=== PATIENT | female | born 1985 | race Caucasian/White ===

== ENCOUNTER 2021-04-16 00:23 | Emergency (ER) | payer OTHER, SELFPAY ==
[2021-04-16 00:28] VITALS: BP 117/77; PULSE 115; RESP 22; TEMP 36.7; O2SAT 100
[2021-04-16 00:53] VITALS: PULSE 110; RESP 20; O2SAT 100
[2021-04-16 01:33] VITALS: BP 157/77; PULSE 62; RESP 18; O2SAT 100
[2021-04-16 01:36] VITALS: BP 124/79; PULSE 69; RESP 16; TEMP 36.7; O2SAT 100
--- NOTE | 2021-04-16 02:21 | ED.GENADULT ---
HPI - General Adult General Chief complaint: Skin/Abscess/Foreign Body Stated complaint: abscess to left axilla Time Seen by Provider: 04/16/21 01:09 CDT Source: RN notes reviewed History of Present Illness HPI narrative: Patient presents emergency department from home for multiple complaints. Patient states she is had an abscess in her left axilla for the past week she stated initially began as a small reddened area that she attempted to drain herself she states progressively enlarged in size with tenderness to palpation and swelling she denies any current drainage from the area she denies any fevers or chills chest pain or shortness of breath. Patient also noticed an area over the lower mid vagina that is been raw and irritated she states that this has been this way for several weeks and is concerned it might be due to a new sexual partner she states the area seems to have been rubbed raw during sexual activity states that she has had no fevers or chills or abdominal pain Related Data Allergies Allergy/AdvReac Type Severity Reaction Status Date / Time No Known Allergies Allergy Verified 04/16/21 00:32 Review of Systems Review of Systems: Gen.: Denies fevers or chills ENT: Denies congestion Respiratory: Denies shortness of breath or cough CV: Denies chest pain or palpitations GI: Denies abdominal pain nausea, emesis or diarrhea denies burning, urgency, frequency or hematuria Musculoskeletal: Denies back pain or muscle pain Neuro: Denies headache Skin: See HPI Except as documented, all other systems reviewed and negative PMFSH Past Medical History Medical History (Updated 04/16/21 @ 02:30 by Cleve Coronado DO) Patient denies significant medical history Social History Social History (Updated 04/16/21 @ 02:26 by Cleve Coronado DO) Smoking status: Never smoker Exam Narrative: APPEARANCE: No acute distress, nontoxic, resting in bed EYES: EOMI HEENT: Normocephalic, atraumatic, RESPIRATORY: No respiratory distress Clear to auscultation bilaterally with no rhonchi wheezing or rales. CARDIOVASCULAR: Regular rate and rhythm without murmurs rubs or gallops. Abdomen: Soft nontender : On external exam there is no erythema at the inferior aspect of the midline vagina there is a there is an area of superficial ulceration this does not appear to be herpetic in nature there is no vaginal drainage MUSCULOSKELETAl: Moves all extremities. No clubbing, cyanosis or edema. NEURO: Awake and alert. Following commands, speech normal, no focal deficits SKIN:: Warm, dry. Left axilla has a large area of erythema with central area of fluctuance no active drainage PSYCHIATRIC: Normal affect/mood, Course Course Emergency Course: Discussed with patient results of workup and diagnosis. Discussed need for follow-up with primary care, proper use of medication, and reasons to return to the emergency department. Patient understands and agrees to current treatment plan discussed with patient need for follow-up with ENVIRONMENTAL SERVICES COORDINATOR discussed need to refrain from sexual activity to follow-up with ENVIRONMENTAL SERVICES COORDINATOR Vital Signs Vital signs: Vital Signs Temperature 98.1 F 04/16/21 00:28 Pulse Rate 115 H 04/16/21 00:28 Respiratory Rate 22 H 04/16/21 00:28 Blood Pressure 117/77 04/16/21 00:28 Pulse Oximetry 100 04/16/21 00:28 Temperature 98.0 F 04/16/21 01:36 GENERATOR MAN Pulse Rate 69 04/16/21 01:36 GENERATOR MAN Respiratory Rate 16 04/16/21 01:36 GENERATOR MAN Blood Pressure 124/79 04/16/21 01:36 GENERATOR MAN Pulse Oximetry 100 04/16/21 01:36 GENERATOR MAN Procedures Abscess I/D Axilla: Abcess I&D Additional Comments: Verbal consent was obtained prior to procedure. The abscess was cleaned with Betadine and lidocaine 1% with epi was used for anesthesia. The abscess was incised with an 11 blade. There was return of approximately 3-4 mL of thick purulent drainage. Curved hemostats were used to break up loculations, the wound was irrigated with normal saline. Following
[2021-04-16 02:41] VITALS: PULSE 80; RESP 18; O2SAT 100
== END 2021-04-16 02:41 | disposition home or self-care (01) ==
PROVIDERS: Emergency Provider Emergency Medicine
DX: L02.412 Cutaneous abscess of left axilla (principal)
CPT/HCPCS: 10061; 99283; A9270

== ENCOUNTER 2025-02-01 15:58 | Emergency (ER) | payer OTHER, SELFPAY ==
--- NOTE | ~2025-02-01 | CT_ITS ---
EXAMINATION: CT brain wo con DATE: 02/01/2025 16:24 INDICATION: Trauma to left side. Left eye swollen shut. TECHNIQUE: Computed tomography (CT) of the head was performed without intravenous contrast. The dose-length product was 605.33 mGy-cm. COMPARISON: None FINDINGS: No acute intracranial hemorrhage. No mass effect. No midline shift. No hydrocephalus. No skull fracture. Visualized paranasal sinuses and mastoid air cells are clear. Left preseptal soft tissue swelling with a few locules of air. Left frontal scalp hematoma with a few locules of air. No metallic radiopaque foreign body identified. The globes have an unremarkable CT appearance. IMPRESSION: 1. No acute intracranial hemorrhage. No mass effect. 2. Left-sided preseptal soft tissue swelling with a few locules of air. 3. Left frontal scalp hematoma with a few locules of air. 4. No metallic radiopaque foreign body identified. 5. The globes have an unremarkable CT appearance. If symptoms persist or worsen, consider a maxillofacial CT for further assessment. Reviewed, dictated and finalized at location Q. IMPRESSION: 1. No acute intracranial hemorrhage. No mass effect. 2. Left-sided preseptal soft tissue swelling with a few locules of air. 3. Left frontal scalp hematoma with a few locules of air. 4. No metallic radiopaque foreign body identified. 5. The globes have an unremarkable CT appearance. If symptoms persist or worsen , consider a maxillofacial CT for further assessment.
[2025-02-01 15:58] VITALS: BP 110/92; PULSE 113; RESP 16; TEMP 37.1; O2SAT 100
--- OUTSIDE RECORDS SUMMARY | 2025-02-01 16:00 | XMS_ITS | Clinical Summary ---
Author Organization [facility] Address [address] [place] [address] Care Team Providers Care Notcher Name Role Phone None, Provider MD Primary Care Provider Unavaila ble Allergies No known active allergies Medications lorazepam 1 MG tablet Take 1 tablet (1 mg total) by mouth every 8 (eight) hours as needed for Anxiety. 12 tablet 10/07/2018 Active hydrOXYzine 25 MG tablet Take 2 tablets (50 mg total) by mouth 2 (two) times daily as needed for Anxiety. 30 tablet 10/07/2018 Active citalopram 20 MG tablet Take 20 mg by mouth daily. 4 09/12/2018 Active diazepam 5 MG tablet Take 10 mg by mouth daily. Active Social History Tobacco Use Types Packs/Day Years Used Date Smoking Tobacco: Every Day Cigarettes Alcohol Use Standard Drinks/Week Comments No 0 (1 standard drink = 0.6 oz pur e alcohol) AUDIT-C Answer Date Recorded Frequency of Alcohol Consumption Never 10/07/2018 Average Number of Drinks Not on file 019 Frequency of Binge Drinking Not on file 09/10 Comments Unknown Sex and Gender Information Value Date Recorded Sex Assigned at Not on file Legal Sex Female 5:50 PM ICT EDUCATOR Gender Identity Not on file Sexual Orientation Not on file Last Filed Vital Signs Vital Sign Reading Time Taken Comments Blood Pressure 89/56 10/01/2019 5:46 PM CDT Pulse 95 10/01/2019 5:46 PM CDT Temperature 36.4 C (97.5 F) 10/01/2019 5:46 PM CDT Respiratory Rate 18 10/01/2019 5:46 PM CDT Oxygen Saturation 97% 10/01/2019 5:46 PM CDT Inhaled Oxygen Concentration - - Weight 77.1 kg (170 lb) 10/01/2019 5:46 PM CDT Height 175.3 cm (5' 9) 10/01/2019 5:46 PM CDT Body Mass Index 25.1 10/01/2019 5:46 PM CDT Plan of Treatment Health Maintenance Due Date Last Done Comments Cervical Cancer Screening Pa p Smear (Age 30 to 64) Every 3 Years 1984 Annual Physical 12/05/1987 Hepatitis C 2002 DTaP, Tdap and Td Vaccines ( 1 - Tdap) 12/05/2003 Hepatitis B Vaccines (1 of 3 - 19+ 3-dose series) 12/05/2003 Pneumococcal Vaccine: Pediat rics (0 to 5 Years) and At-Risk Patients (6 to 49 Years) (1 of 2 - PCV) 12/05/2003 HPV Vaccines (1 - 3-dose SCD M series) 12/05/2011 Cervical Cancer Screening Pa p with HPV Testing (Age 30 to 64) Every 5 Years 2014 Cervical Cancer Screening with HPV 2014 COVID-19 Vaccine (2023-2 5 season) 2024 Mammogram Screening 2024 Meningococcal B Vaccine Aged Out No l onger eligible based on patient's age to complete this topic Meningococcal Vaccine Aged Out No therese krystina eligible based on patient's age to complete this topic RSV Immunizations Under 20 Months Aged Out No longer eligible based on patient's age to complete this topic Insurance Care Teams Notcher Relationship Specialty Start Date End Date None, Provider, PCP - General 10/07/18
--- OUTSIDE RECORDS SUMMARY | 2025-02-01 16:01 | XMS_ITS | Encounter Summary ---
Author Organization [facility] Address Formerly [facility], [id number] [place] [address] Care Team Providers Care Bead Builder Name Role Phone None, Provider Primary Care Provider Unavaila ble Encounter Details Date Type Department Care Team (Late st Contact Info) Description 11/15/2018 Abstract SFL CONVERSION [address] [place] [id number] , Generic Conversion, Social History Tobacco Use Types Packs/Day Years [...] on file Legal Sex Female 5:50 PM SOFTWARE DEVELOPMENT ADVISOR Gender Identity Not on file Sexual Orientation Not on file documented as of this encounter Plan of Treatment Not on file documented as of this encounter Visit Diagnoses Not on filedocumented in this encounter Care Teams Bead Builder Relationship Specialty Start Date End Date None, Provider, PCP - General 10/07/18 documented as of this encounter
--- OUTSIDE RECORDS SUMMARY | 2025-02-01 16:01 | XMS_ITS | Patient Health Record ---
Author Organization [facility] Address [address] [place] [address] Care Team Providers Care Life Skills Worker Name Role Phone Abrahan Anna Primary Care Provider [phone] Allergies No Known Allergies Reason For Referral No Information Medications Medication SIG (Take, Route, Frequency, Duration) Notes Start Date End Date Status Propranolol HCl ER 60 MG 1 capsule Orall y Once a day; Duration: 30 days Active Wrist Splint/Cock-Up/Right 2XS - wear on right wrist until weakness resolves; Duration: 90 days 01/22/2022 Active Escitalopram Oxalate 20 MG 1 tablet Oral ly Once a day; Duration: 30 days Active Venlafaxine HCl ER 75 MG TAKE 1 CAPSULE BY MOUTH EVERY DAY WITH FOOD; Duration: 30 Active QUEtiapine Fumarate 100 MG TAKE 1 TABLET BY MOUTH EVERYDAY AT BEDTIME; Duration: 30 Active Sertraline HCl 50 MG TAKE 1 TABLET BY MO UTH EVERY DAY; Duration: 30 days Active Divalproex Sodium 250 MG TAKE 1 TABLET B Y MOUTH TWICE A DAY; Duration: 30 day(s) Active Prazosin HCl 2 MG 1 capsule at bedtime Orally Once a day; Duration: 30 day(s) 07/28/2021 Active clonazePAM 1 MG TAKE 1 TABLET BY TALITA TH TWICE A DAY; Duration: 7 days 05/31/2022 Active Immunizations Vaccine Route Administration Date Status Comme nts FLU VAC NO PRSV 4 MEMO >6 MO Unknown 04/22/2019 Refused Social History Tobacco Use: Social History Observation Description Date Details (start date - stop date) Current Smoker NA - NA Tobacco Use/Smoking Question Answer Notes Are you a current smoker How often do you smoke cigarettes? every day How many cigarettes a day do you smoke? 6-10 How soon after you wake up do you smoke your fir st cigarette? within 5 minutes Are you interested in quitting? Not ready to arturo t Alcohol Screen (Audit-C) Question Answer Notes Did you have a drink containing alcohol in the p ast year? No Points 0 Interpretation Negative Sexual History Question Answer Notes Had sex in the past 12 months (vaginal, oral, or anal)? Yes with Both Men and Women Use protection? Yes How often? All of the time Have you ever had a Sexually transmitted disease ? No Last menstrual period 01/17/2022 DAST-10 Question Answer Notes Total Score: 4 Interpretation: Moderate level Section Notes: Pt. is engaged. Her fiance i s currently deployed to [facility] and she is having a hard time without her. Pt. has a 12 y/o daughter who lives with her dad. She is from her father's dad. She is not working because of her mental illness.. Pt. is engaged. Her fiance i s currently deployed to [facility] and she is having a hard time without her. Pt. has a 12 y/o daughter who lives with her dad. She is from her father's dad. She is not working because of her mental illness.. Pt. is engaged. Her fiance i s currently deployed to [facility] and she is having a hard time without her. Pt. has a 12 y/o daughter who lives with her dad. She is from her father's dad. She is not working because of her mental illness.. Pt. is engaged. Her fiance i s currently deployed to [facility] and she is having a hard time without her. Pt. has a 12 y/o daughter who lives with her dad. She is from her father's dad. She is not working because of her mental illness.. Pt. is engaged. Her fiance i s currently deployed to [facility] and she is having a hard time without her. Pt. has a 12 y/o daughter who lives with her dad. She is from her father's dad. She is not working because of her mental illness.. Pt. is engaged. Her fiance i s currently deployed to [facility] and she is having a hard time without her. Pt. has a 12 y/o daughter who lives with her dad. She is from her father's dad. She is not working because of her mental illness.. Pt. is engaged. Her fiance i s currently deployed to [facility] and she is having a hard time without her. Pt. has a 12 y/o daughter who lives with her dad. She is from her father's dad. She is not working because of her mental illness.. Pt. is engaged. Her fiance i s currently deployed to [facility] and she is having a hard time without her. Pt. has a 12 y/o daughter who lives with her dad. She is from her father's dad. She is not working because of her mental illness.. pt is living in [facility] with a friend, not boyfriend. Has no contact with her dauhter. pt is living in [facility] with a friend, not boyfriend. Has no contact with her dauhter. pt is living in [facility] with a friend, not boyfriend. Has no contact with her dauhter. pt is living in [facility] with a friend, not boyfriend. Has no contact with her dauhter. pt is living in [facility] with a friend, not boyfriend. Has no contact with her dauhter. 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) Active confirmed Problem Bipolar affective disorder, currently manic, moderate (306062643) Bipolar 1 disorder with moderate dominick (F31.12) 01/11/20 21 Active confirmed Problem Tobacco dependence (56860359) Tobacco dependence (F17.200) 01/11/20 21 Active confirmed Problem Amenorrhea (05665232) Amenorrhea (N91.2) 01/11/20 21 Active confirmed Problem Posttraumatic stress disorder (31463247) PTSD (post-traumatic stress disorder) (F43.10) 01/03/20 19 Active confirmed Problem Generalized anxiety disorder (14503072) WILLIS (generalized anxiety disorder) (F41.1) 01/03/20 19 Active confirmed Problem Panic disorder (640325091) Panic disorder (F41.0) 01/03/20 19 Active confirmed Problem Mood disorder (70087869) Mood disorder (F39) 01/10/20 19 Active confirmed Problem Methamphetamine abuse (152251695) Methamphetamine abuse (F15.10) 02/10/20 21 Active confirmed Problem Anorexia nervosa (11928643) Anorexia mentalis (F50.00) 01/31/20 19 Active confirmed Problem Chronic hepatitis C (335347253) Hep C w/o coma, chronic (B18.2) 01/11/20 21 Active confirmed Problem Opioid use disorder (7885720372) Opioid use disorder (F11.99) 01/10/20 19 Active confirmed Problem Severe recurrent major depression without psychotic features (10740835) MDD (major depressive disorder), recurrent severe, 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) 01/03/20 19 Active confirmed Problem Benzodiazepine misuse (finding) (190270932) Moderate benzodiazepine use disorder (F13.20) 01/11/20 21 Active confirmed Plan Of Treatment Pending Test Test Name Order Date CAFFIENE * 09/11/2019 BLOOD COUNT WITH DIFF * 09/11/2019 COMPREHENSIVE METABOLIC PANEL (CMP) * DRUG SCREEN 9, SERUM OR PLASMA W/ CONFIR M * 10/30/2019 DRUG SCREEN 9, SERUM OR PLASMA W/ CONFIR M * 09/11/2019 IONIZED CALCIUM * 09/11/2019 MAGNESIUM * 09/11/2019 CATECHOLAMINE,PLASMA * 09/11/2019 URINE DRUG PANEL 9 W/ REFLEX * 1 TSH W/ FT4 REFLEX * 09/11/2019 Insurance Providers Payer Name Payer Address Payer Phone Subscriber Number Group Number Insured Name Patient Relationship to Insured Coverage Start Date Coverage End Date Medicaid [employer] Primary Only [address], [place] [id number] Kay Sanders Self - patient is the insured [address] [place] [address] [id number] Kay Sanders Self - patient is the insured Medical (General) History Medical History History ICD Code ptsd SEVERE PANIC ATTACK/ANXIETY DISORDER SUBSTANCE ABUSE Severe opioid dependence on maintenance therapy F11.20 Heroin abuse F11.10 hep c Surgical History Surgery Date(Month/Year) Hospitalization History Reason Date(Month/Year) [facility] voluntary detox to get off meth adone
--- NOTE | 2025-02-01 16:27 | ED_ITS ---
HPI - General Adult General Chief complaint: Skin/Abscess/Foreign Body Stated complaint: eye complaint Time Seen by Provider: 02/01/25 16:06 Source: patient Mode of arrival: ambulatory Limitations: no limitations History of Present Illness HPI narrative: 39-year-old healthy here with a complains of left forearm pain and swelling, swollen left and wound on the left forehead for 2 days. Patient states that she has been rehabbing a house which is infested. to fell two days ago and hit her head no loc . Onset (ago): day(s) (2) Location: head, face and upper extremity (left) Radiation: non-radiation Severity: moderate Pain Consistency: constant Relieving factors: none Exacerbating factors: none Associated symptoms: denies other symptoms Treatments prior to arrival: none Related Data Home Medications ?Medication ?Instructions ?Recorded ?Confirmed ?Last Taken ?Type alprazolam 1 mg tablet 1 mg PO TID 02/01/25 Unknow n History Allergies Allergy/AdvReac Type Severity Reaction Status Date / Time No Known Allergies Allergy Verified 02/01/25 16:22 Review of Systems Review of Systems: All systems reviewed & are unremarkable except as noted in HPI and below Constitutional: Constitutional: Reports no additional constitutional complaints Eyes: Eyes: Reports as per HPI ENT: Reports system reviewed and no additional complaints, except as documented Cardiovascular: Cardiovascular: Reports no additional cardiovascular compl aints Respiratory: Respiratory: Reports no additional respiratory complaints Gastrointestinal: Gastrointestinal: Reports no additional gastrointestinal complaints Genitourinary: Genitourinary: Reports no additional female genitourinary co mplaints Musculoskeletal: Musculoskeletal: Reports as per HPI Integumentary/Breasts: Skin/Breast: Reports as per HPI Neurologic: Reports system reviewed and no additional complaints, except as documented Psychiatric: Psychiatric: Reports no additional psychiatric complaints Endocrine: Endocrine: Reports no additional endocrine complaints PMFSH Past Medical History Medical History Patient denies significant medical history Social History Social History Smoking status: Never smoker Exam Narrative: GENERAL: Well-appearing, well-nourished, and in no acute distress. HEAD: Normocephalic, atraumatic. has a scab on the n the left forehead EYES: PERRLA and EOMI. left orbital edema ENT: Nares clear, no rhinorrhea or epistaxis. Mucous membranes moist. NECK: Supple. CHEST: Clear to auscultation. No respiratory distress. HEART: Regular rate and rhythm. No murmur heard. Normal peripheral pulses. ABDOMEN: Soft, nontender, nondistended, normal active bowel sounds. EXTREMITIES: Normal range of motion. No edema. left forearm is swollen from elbow to mid arm , good radial pulse SKIN: Warm, dry, no rash. NEURO: No focal deficits. Alert and oriented x3. PSYCH: Normal mood and affect. Course Vital Signs Vital signs: Vital Signs Temperature 37.1 C 02/01/25 15:58 Pulse Rate 113 H 02/01/25 15:58 Respiratory Rate 16 02/01/25 15:58 Blood Pressure 110/92 H 02/01/25 15:58 Pulse Oximetry 100 02/01/25 15:58 Oxygen Delivery Room Air 02/01/25 15:58 Temperature 37.1 C 02/01/25 15:58 Pulse Rate 113 H 02/01/25 15:58 Respiratory Rate 16 02/01/25 15:58 Blood Pressure 110/92 H 02/01/25 15:58 Pulse Oximetry 100 02/01/25 15:58 Oxygen Delivery Room Air 02/01/25 15:58 Medical Decision Making Differential Diagnosis Differential Diagnosis: cellulitis , local reaction to insect bite. Vital Signs Vital Signs: Vital Signs Temperature 37.1 C 02/01/25 15:58 Pulse Rate 113 H 02/01/25 15:58 Respiratory Rate 16 02/01/25 15:58 Blood Pressure 110/92 H 02/01/25 15:58 Pulse Oximetry 100 02/01/25 15:58 Oxygen Delivery Room Air 02/01/25 15:58 Temperature 37.1 C 02/01/25 15:58 Pulse Rate 113 H 02/01/25 15:58 Respiratory Rate 16 02/01/25 15:58 Blood Pressure 110/92 H 02/01/25 15:58 Pulse Oximetry 100 02/01/25 15:58 Oxygen Delivery Room Air 02/01/25 15:58 Imaging Data Radiologist's impression: ITS Impressions Head CT 02/01/25 16:26 IMPRESSION: 1. No acute intracranial hemorrhage. No mass effect. 2. Left-sided preseptal soft tissue swelling with a few locules of air. 3. Left frontal scalp hematoma with a few locules of air. 4. No metallic radiopaque foreign body identified. 5. The globes have an unremarkable CT appearance. If symptoms persist or worsen, consider a maxillofacial CT for further assessment. Discharge Plan Discharge Clinical Impression: Abscess of skin or subcutaneous tissue, Local reaction to insect sting Patient Disposition: Home Condition: Stable Instructions: Antibiotic Form, Cellulitis (ED) Additional Instructions: take antibiotic as prescribed. Patient Language: Telugu Prescriptions: New amoxicillin-pot clavulanate 875-125 mg tablet 1 tablet PO Q12H Qty: 14 0RF hydrocodone-acetaminophen 5-325 mg tablet 1 tablet PO Q8H PRN (Reason: pain) Qty: 14 0RF prednisone 20 mg tablet 20 mg PO BID Qty: 14 0RF No Action alprazolam 1 mg tablet 1 mg PO TID Follow-up/Referrals: UNKNOWN,DOCTOR [Non-Staff] Nathalie,Sandy Stewart APRN [Primary Care Provider, Unknown] Time of Disposition: 17:03
[2025-02-01] MEDS: cefTRIAXone 1 GM, LIDOCAINE 1% LOCAL INJ 2.1 ML IM (16:48)
[2025-02-01 17:09] VITALS: BP 113/77; PULSE 98; RESP 18; TEMP 36.7; O2SAT 100
== END 2025-02-01 17:17 | disposition home or self-care (01) ==
PROVIDERS: Emergency Provider Family Medicine; PCP Nurse Practitioner Family
DX: L02.414 Cutaneous abscess of left upper limb (principal); W19.XXXA Unspecified fall, initial encounter
CPT/HCPCS: 70450; 96372; 99284; J2003; J7512

== ENCOUNTER 2025-02-04 18:05 | Emergency (ER) | payer OTHER, SELFPAY ==
[2025-02-04 18:06] VITALS: BP 120/82; RESP 20; TEMP 36.4; O2SAT 97
--- NOTE | 2025-02-04 18:24 | ED_ITS ---
HPI - Extremity Injury (Upper) General Chief Complaint: Extremity Injury, Upper Stated Complaint: swollen left arm Time Seen by Provider: 02/04/25 18:23 Source: patient Mode of arrival: ambulatory Limitations: no limitations History of Present Illness HPI narrative: patient 39-year-old female with some cellulitis was seen 3 days ago and started on steroid and antibiotics but swelling inflammation has persisted despite the steroid and Augmentin. Currently afebrile the area is warm and red without any fluctuance no fever chills no shortness of breath no nausea vomiting. complaint: injury to: left Onset (ago): day(s) Other Extremity Injury: Left: forearm ( Warm red and swollen without fluctuance) Handedness: right Related Data Home Medications ?Medication ?Instructions ?Recorded ?Confirmed ?Last Taken ?Type alprazolam 1 mg tablet 1 mg PO TID 02/01/25 Unknow n History Allergies Allergy/AdvReac Type Severity Reaction Status Date / Time No Known Allergies Allergy Verified 02/04/25 18:08 Review of Systems Review of Systems: All systems reviewed & are unremarkable except as noted in HPI and below PMFSH Past Medical History Medical History Patient denies significant medical history Social History Social History Smoking status: Never smoker Exam Const: General: healthy appearing, no acute distress and alert Neck: Neck: normal visual inspection Chest: Chest palpation & inspection: normal inspection of the chest Resp: Effort & Inspection: normal respiratory effort Auscultation: clear to auscultation bilaterally Cardio: Rate: regular rate Rhythm: regular rhythm GI: GI Palp: Yes Soft to palpation Auscultation: normal bowel sounds : General: Yes bladder normal to palpation Urinary Catheter: Urinary Catheter: patent and draining Back/Spine/Pelvis: Back: no CVA tenderness Skin: Wounds: wounds noted Other: warm red area without fluctuance left forearm is tender warm to touch Course Course Emergency Course: administered a dose of 1g IM ceftriaxone and 60mg IM Toradol advised patient to use warm compress to discontinue Augmentin and steroids and take medication that is prescribed. Vital Signs Vital signs: Vital Signs Temperature 36.4 C 02/04/25 18:06 Respiratory Rate 20 02/04/25 18:06 Blood Pressure 120/82 02/04/25 18:06 Pulse Oximetry 97 02/04/25 18:06 Oxygen Delivery Room Air 02/04/25 18:06 Temperature 36.4 C 02/04/25 18:06 Respiratory Rate 20 02/04/25 18:06 Blood Pressure 120/82 02/04/25 18:06 Pulse Oximetry 97 02/04/25 18:06 Oxygen Delivery Room Air 02/04/25 18:06 Critical Care Time Critical Care Time Critical Care Time: No Discharge Plan Discharge Clinical Impression: Cellulitis Qualifiers: Site of cellulitis: extremity Site of cellulitis of extremity: upper extremity Laterality: left Qualified Code(s): L03.114 - Cellulitis of left upper limb Patient Disposition: Home Condition: Stable Instructions: Antibiotic Form, Cellulitis (ED) Additional Instructions: advised to discontinue current medication that was prescribed 3 days ago and start Levaquin antibiotic along with naproxen. Patient Language: Yi Prescriptions: New levofloxacin 500 mg tablet 500 mg PO DAILY Qty: 7 0RF naproxen 500 mg tablet 500 mg PO BID Qty: 14 0RF No Action alprazolam 1 mg tablet 1 mg PO TID amoxicillin-pot clavulanate 875-125 mg tablet 1 tablet PO Q12H Qty: 14 0RF prednisone 20 mg tablet 20 mg PO BID Qty: 14 0RF Follow-up/Referrals: Nathalie,Sandy Stewart, PIPE STRIPPER [Primary Care Provider, Unknown] Time of Disposition: 18:29
[2025-02-04] MEDS: KETOROLAC (*BKC) 60 MG/2 ML VIAL IM (18:29)
[2025-02-04] MEDS: cefTRIAXone 1 GM, LIDOCAINE 1% LOCAL INJ 2.1 ML IM (18:29)
--- OUTSIDE RECORDS SUMMARY | 2025-02-04 18:41 | XMS_ITS | Patient Health Record ---
Author Organization [facility] Address [address] [place] [address] Care Team Providers Care Plumber Name Role Phone Abrahan Anna Primary Care Provider Allergies No Known Allergies Reason For Referral [...] Her fiance i s currently deployed to [facility] and she is having a hard time without her. Pt. has a 12 y/o daughter who lives with her dad. She is from her father's dad. She is not working because of her mental illness.. Pt. is engaged. Her fiance i s currently deployed to [facility] and she is having a hard time without her. Pt. has a 12 y/o daughter who lives with her dad. She is from her father's dad. She is not working because of her mental illness.. Pt. is engaged. Her fiance i s currently deployed to [facility] and she is having a hard time without her. Pt. has a 12 y/o daughter who lives with her dad. She is from her father's dad. She is not working because of her mental illness.. Pt. is engaged. Her fiance i s currently deployed to [facility] and she is having a hard time without her. Pt. has a 12 y/o daughter who lives with her dad. She is from her father's dad. She is not working because of her mental illness.. Pt. is engaged. Her fiance i s currently deployed to [facility] and she is having a hard time without her. Pt. has a 12 y/o daughter who lives with her dad. She is from her father's dad. She is not working because of her mental illness.. Pt. is engaged. Her fiance i s currently deployed to [facility] and she is having a hard time without her. Pt. has a 12 y/o daughter who lives with her dad. She is from her father's dad. She is not working because of her mental illness.. Pt. is engaged. Her fiance i s currently deployed to [facility] and she is having a hard time without her. Pt. has a 12 y/o daughter who lives with her dad. She is from her father's dad. She is not working because of her mental illness.. Pt. is engaged. Her fiance i s currently deployed to [facility] and she is having a hard time without her. Pt. has a 12 y/o daughter who lives with her dad. She is from her father's dad. She is not working because of her mental illness.. pt is living in [facility] with a friend, not boyfriend. Has no contact with her dauhter. pt is living in [facility] with a friend, not boyfriend. Has no contact with her dauhter. pt is living in [facility] with a friend, not boyfriend. Has no contact with her dauhter. pt is living in [facility] with a friend, not boyfriend. Has no contact with her dauhter. pt is living in [facility] with a friend, not boyfriend. Has no contact with her dauhter. 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) Active confirmed Problem Bipolar affective disorder, currently manic, moderate (726340579) Bipolar 1 disorder with moderate dominick (F31.12) 01/11/20 21 Active confirmed Problem Tobacco dependence (11166601) Tobacco dependence (F17.200) 01/11/20 21 Active confirmed Problem Amenorrhea (24449797) Amenorrhea (N91.2) 01/11/20 21 Active confirmed Problem Posttraumatic stress disorder (56662839) PTSD (post-traumatic stress disorder) (F43.10) 01/03/20 19 Active confirmed Problem Generalized anxiety disorder (66749599) WILLIS (generalized anxiety disorder) (F41.1) 01/03/20 19 Active confirmed Problem Panic disorder (637659101) Panic disorder (F41.0) 01/03/20 19 Active confirmed Problem Mood disorder (07711217) Mood disorder (F39) 01/10/20 19 Active confirmed Problem Methamphetamine abuse (495008594) Methamphetamine abuse (F15.10) 02/10/20 21 Active confirmed Problem Anorexia nervosa (58538035) Anorexia mentalis (F50.00) 01/31/20 19 Active confirmed Problem Chronic hepatitis C (319122944) Hep C w/o coma, chronic (B18.2) 01/11/20 21 Active confirmed Problem Opioid use disorder (1574495775) Opioid use disorder (F11.99) 01/10/20 19 Active confirmed Problem Severe recurrent major depression without psychotic features (81716501) MDD (major depressive disorder), recurrent severe, 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) 01/03/20 19 Active confirmed Problem Benzodiazepine misuse (finding) (973443105) Moderate benzodiazepine use disorder (F13.20) 01/11/20 21 [...] End Date Medicaid [employer] Primary Only [address] [place], [place] [id number] Kay Sanders Self - patient is the insured [address] [place] [address] [id number] Kay Sanders Self - patient is the insured Medical (General) History Medical History History ICD Code ptsd SEVERE PANIC ATTACK/ANXIETY DISORDER SUBSTANCE ABUSE Severe opioid dependence on maintenance therapy F11.20 Heroin abuse F11.10 hep c Surgical History Surgery Date(Month/Year) Hospitalization History Reason Date(Month/Year) [facility] voluntary detox to get off meth adone
== END 2025-02-04 18:39 | disposition home or self-care (01) ==
LOC: CHSED 18:38
PROVIDERS: Emergency Provider Emergency Medicine; PCP Nurse Practitioner Family
DX: L03.114 Cellulitis of left upper limb (principal)
CPT/HCPCS: 96372; 99284; J0696; J1885; J2003

== ENCOUNTER 2025-02-07 05:33 | Emergency (ER) | payer OTHER, SELFPAY ==
[2025-02-07] VITALS (59 sets, daily range): BP systolic 112–135; BP diastolic 71–106; PULSE 81–104; RESP 10–27; TEMP 36.7; O2SAT 92–99
--- NOTE | ~2025-02-07 | CT_ITS ---
EXAMINATION: CT UE LT w con DATE: 02/07/2025 08:16 INDICATION: Abscess at the left forearm TECHNIQUE: High resolution computed tomography (CT) of the left forearm was performed with 100 mL Omnipaque-350 intravenous contrast. Additional sagittal and coronal reconstructions were performed. Automated exposure control and iterative reconstruction technique were employed. The dose-length product was 787.06 mGy-cm. COMPARISON: None FINDINGS: There is 11.2 x 5.6 x 3.9 cm peripherally enhancing abscess with a few small foci of gas within the musculature of the extensor compartment of the proximal to mid left forearm. There is prominent inflammatory stranding beginning at the mid upper arm and extending throughout the forearm to the visualized wrist and carpus. Normal bone alignment. No fracture. No periosteal reaction or cortical erosions to suggest osteomyelitis. Elbow joint space is normal with no joint effusion. IMPRESSION: 1. 11.2 x 5.6 x 2.9 cm abscess within the extensor compartment of the proximal to mid left forearm. Reviewed, dictated and finalized at location A.
--- NOTE | ~2025-02-07 | XR_ITS ---
XR forearm LT 2V 02/07/2025 06:57 Indication: Abscess. Procedure: 2 views left forearm Comparison: No prior studies for comparison. Findings: Moderate soft tissue swelling dorsal to the forearm with pet questionable punctate areas of gas within the soft tissue. Cannot exclude abscess. There is old scaphoid fracture with sclerosis, likely chronic with avascular necrosis. Impression: 1: Moderate dorsal soft tissue swelling. Consider correlation with MRI of the forearm with contrast to assess for abscess. 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 Reviewed, dictated and finalized at location O. Impression: 1: Moderate dorsal soft tissue swelling. Consider correlation with MRI of the f orearm with contrast to assess for abscess. 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
--- NOTE | 2025-02-07 05:50 | ED_ITS ---
HPI - General Adult General Chief complaint: Skin/Abscess/Foreign Body <Edson Lee MD - Last Filed: 02/07/25 05:52> Stated complaint: upper extremity <Edson Lee MD - Last Filed: 02/07/25 05:52> Time Seen by Provider: 02/07/25 05:38 <Edson Lee MD - Last Filed: 02/07/25 05:52> History of Present Illness HPI narrative: Patient is a 39-year-old female who presents emergency department with chief complaint of swelling of the left forearm patient reports that she has history of IM narcotic use and reports that she started having swelling in her left forearm she was seen at [facility] on twice initially started on Augmentin and prednisone then switched to Levaquin the patient reports continued to swell reports become extremely painful and warm to touch patient reports this feels similar to whenever she has had abscesses in the past <Edson Lee MD - Last Filed: 02/07/25 05:52> Patient is a 39-year-old female who presents to the emergency department with chief complaint of swelling of the left forearm patient reports that she has history of IM narcotic use and reports that she started having swelling in her left forearm she was seen at [facility] on twice initially started on Augmentin and prednisone then switched to Levaquin the patient reports continued to swell reports become extremely painful and warm to touch patient reports this feels similar to whenever she has had abscesses in the past <Pablo Aldridge MD - Last Filed: 02/07/25 17:12> Related Data Home medications: Home Medications ?Medication ?Instructions ?Recorded ?Confirmed ?Last Taken ?Type alprazolam 1 mg tablet 1 mg PO TID 02/01/25 Unknow n History <Edsno Lee MD - Last Filed: 02/07/25 05:52> Allergies/adverse reactions: Allergies Allergy/AdvReac Type Severity Reaction Status Date / Time No Known Allergies Allergy Verified 02/07/25 05:55 <Edson Lee MD - Last Filed: 02/07/25 05:52> Review of Systems 2 Review of Systems: A 10 system review of systems was completed on the patient and is negative except for what is stated in the HPI. Nursing and ancillary documentation was reviewed. <Edson Lee MD - Last Filed: 02/07/25 05:52> PMFSH Past Medical History Medical History: Medical History Patient denies significant medical history <Edson Lee MD - Last Filed: 02/07/25 05:52> Social History Social History: Social History Smoking status: Never smoker <Edson Lee MD - Last Filed: 02/07/25 05:52> Exam 2 Narrative: GENERAL: Well-appearing, well-nourished, and in no acute distress. HEAD: Normocephalic, atraumatic. EYES: PERRLA and EOMI. ENT: Nares clear, no rhinorrhea or epistaxis. Mucous membranes moist. NECK: Supple. CHEST: Clear to auscultation. No respiratory distress. HEART: Regular rate and rhythm. No murmur heard. Normal peripheral pulses. ABDOMEN: Soft, nontender, nondistended, normal active bowel sounds. EXTREMITIES: Normal range of motion. No edema. Large area of redness and swelling present to the left forearm close to the elbow SKIN: Warm, dry, no rash. NEURO: No focal deficits. Alert and oriented x3. PSYCH: Normal mood and affect. <Edson Lee MD - Last Filed: 02/07/25 05:52> Course Vital Signs Vital signs: Vital Signs Temperature 98.1 F 02/07/25 05:38 Pulse Rate 99 02/07/25 05:38 Respiratory Rate 18 02/07/25 05:38 Blood Pressure 127/94 H 02/07/25 05:38 Pulse Oximetry 99 02/07/25 05:38 Oxygen Delivery Room Air 02/07/25 05:38 Temperature 98.1 F 02/07/25 05:38 Pulse Rate 86 02/07/25 15:15 Respiratory Rate 22 H 02/07/25 15:15 Blood Pressure 131/82 02/07/25 14:46 Pulse Oximetry 93 02/07/25 15:15 Oxygen Delivery Room Air 02/07/25 05:38 <Edson Lee MD - Last Filed: 02/07/25 05:52> Vital Signs Temperature 98.1 F 02/07/25 05:38 Pulse Rate 99 02/07/25 05:38 Respiratory Rate 18 02/07/25 05:38 Blood Pressure 127/94 H 02/07/25 05:38 Pulse Oximetry 99 02/07/25 05:38 Oxygen Delivery Room Air 02/07/25 05:38 Temperature 98.1 F 02/07/25 05:38 Pulse Rate 86 02/07/25 15:15 Respiratory Rate 22 H 02/07/25 15:15 Blood Pressure 131/82 02/07/25 14:46 Pulse Oximetry 93 02/07/25 15:15 Oxygen Delivery Room Air 02/07/25 05:38 <Pablo Aldridge MD - Last Filed: 02/07/25 17:12> Medical Decision Making MDM Narrative Medical decision making narrative: 39-year-old female presents emergency department for evaluation for swelling of her left arm. Patient is afebrile but does have a leukocytosis of 12.7 hemoglobin 11.9. Patient has no significant acute abnormalities on her CMP. CT of the upper extremity does show a large abscess in the extensor compartment of the left forearm. Case was discussed with Orthopedic surgery they felt that this was to complex of the case to be admitted to [facility] and did recommend transfer to a tertiary care center. Case was discussed with [facility] and patient was accepted by the hand surgeon. Case was discussed with the ED physician and patient was accepted as an ED to ED transfer. Prior to transfer patient had been started on cefepime and vanc. Patient was updated on the plan for transfer and necessity for transfer. All questions concerns were addressed patient was well-appearing at time of transfer. <Pablo Aldridge MD - Last Filed: 02/07/25 17:12> Differential Diagnosis Differential Diagnosis: Compartment syndrome, abscess, cellulitis <Pablo Aldridge MD - Last Filed: 02/07/25 17:12> Vital Signs Vital Signs: Vital Signs Temperature 98.1 F 02/07/25 05:38 Pulse Rate 99 02/07/25 05:38 Respiratory Rate 18 02/07/25 05:38 Blood Pressure 127/94 H 02/07/25 05:38 Pulse Oximetry 99 02/07/25 05:38 Oxygen Delivery Room Air 02/07/25 05:38 Temperature 98.1 F 02/07/25 05:38 Pulse Rate 86 02/07/25 15:15 Respiratory Rate 22 H 02/07/25 15:15 Blood Pressure 131/82 02/07/25 14:46 Pulse Oximetry 93 02/07/25 15:15 Oxygen Delivery Room Air 02/07/25 05:38 <Edson Lee MD - Last Filed: 02/07/25 05:52> Vital Signs Temperature 98.1 F 02/07/25 05:38 Pulse Rate 99 02/07/25 05:38 Respiratory Rate 18 02/07/25 05:38 Blood Pressure 127/94 H 02/07/25 05:38 Pulse Oximetry 99 02/07/25 05:38 Oxygen Delivery Room Air 02/07/25 05:38 Temperature 98.1 F 02/07/25 05:38 Pulse Rate 86 02/07/25 15:15 Respiratory Rate 22 H 02/07/25 15:15 Blood Pressure 131/82 02/07/25 14:46 Pulse Oximetry 93 02/07/25 15:15 Oxygen Delivery Room Air 02/07/25 05:38 <Pablo Aldridge MD - Last Filed: 02/07/25 17:12> Lab Data Lab results reviewed: Yes I reviewed the patient's lab results. <Pablo Aldridge MD - Last Filed: 02/07/25 17:12> Result diagrams: 02/07/25 06:06 02/07/25 06:06 <Edson Lee MD - Last Filed: 02/07/25 05:52> Labs: Lab Results 02/07/25 02/07/25 Range/Units 06:06 07:54 WBC 12.7 H (4.5-10.0) K/mm3 RBC 4.30 (4.2-5.4) M/mm3 Hgb 11.9 L (12.0-15.0) g/dL Hct 38.6 (37.0-47.0) % MCV 89.8 (80-100) fl MCH 27.7 (26-34) pg MCHC 30.8 L (32-36) g/dl RDW 13.4 (11.5-14.5) % Plt Count 433 H (150-375) k/mm3 MPV 9.4 (7.4-10.4) fl Immature Gran % (Auto) 0.6 H (0-0.5) % Neut % (Auto) 72.4 (45.5-73.1) % Lymph % (Auto) 16.4 L (18.3-44.2) % Josephine % (Auto) 7.2 (2.6-8.5) % Eos % (Auto) 2.8 (0-4.4) % Baso % (Auto) 0.6 (0.2-1.2) % Lymph # (Auto) 2.08 (0.9-3.2) K/mm3 Josephine # (Auto) 0.9 H (0.1-0.6) K/mm3 Eos # (Auto) 0.4 H (0-0.3) K/mm3 Baso # (Auto) 0.1 (0.0-0.1) K/mm3 Abs Immat Gran (auto) 0.08 H (0.00-0.031) K/mm3 Absolute Neuts (auto) 9.2 H (1.3-6.7) K/mm3 Absolute Nucleated RBC 0.000 (0.0-0.012) K/mm3 Nucleated RBC % 0.0 (0.0-0.2) % Sodium 135 L (137-145) mmol/L Potassium 4.2 (3.4-5.0) mmol/L Chloride 102 (98-107) mmol/L Carbon Dioxide 24 (22-30) mmol/L Anion Gap 9 (4-12) mmol/L BUN 11 (7-17) mg/dL Creatinine 0.63 L (0.7-1.0) mg/dL Estim Creat Clear Calc 106 ml/min Estimated GFR > 60 (59 - ) Glucose 99 (65-110) mg/dL Lactic Acid 1.0 (0.7-2.0) mmol/L Calcium 8.9 (8.4-10.2) mg/dL Total Bilirubin 0.8 (0.2-1.3) mg/dL AST 28 (14-36) U/L ALT 19 (6-35) U/L Alkaline Phosphatase 77 (38-126) U/L Total Protein 8.9 H (6.3-8.2) g/dL Albumin 3.9 (3.5-5.1) g/dL <Edson Lee MD - Last Filed: 02/07/25 05:52> Lab Results 02/07/25 02/07/25 Range/Units 06:06 07:54 WBC 12.7 H (4.5-10.0) K/mm3 RBC 4.30 (4.2-5.4) M/mm3 Hgb 11.9 L (12.0-15.0) g/dL Hct 38.6 (37.0-47.0) % MCV 89.8 (80-100) fl MCH 27.7 (26-34) pg MCHC 30.8 L (32-36) g/dl RDW 13.4 (11.5-14.5) % Plt Count 433 H (150-375) k/mm3 MPV 9.4 (7.4-10.4) fl Immature Gran % (Auto) 0.6 H (0-0.5) % Neut % (Auto) 72.4 (45.5-73.1) % Lymph % (Auto) 16.4 L (18.3-44.2) % Josephine % (Auto) 7.2 (2.6-8.5) % Eos % (Auto) 2.8 (0-4.4) % Baso % (Auto) 0.6 (0.2-1.2) % Lymph # (Auto) 2.08 (0.9-3.2) K/mm3 Josephine # (Auto) 0.9 H (0.1-0.6) K/mm3 Eos # (Auto) 0.4 H (0-0.3) K/mm3 Baso # (Auto) 0.1 (0.0-0.1) K/mm3 Abs Immat Gran (auto) 0.08 H (0.00-0.031) K/mm3 Absolute Neuts (auto) 9.2 H (1.3-6.7) K/mm3 Absolute Nucleated RBC 0.000 (0.0-0.012) K/mm3 Nucleated RBC % 0.0 (0.0-0.2) % Sodium 135 L (137-145) mmol/L Potassium 4.2 (3.4-5.0) mmol/L Chloride 102 (98-107) mmol/L Carbon Dioxide 24 (22-30) mmol/L Anion Gap 9 (4-12) mmol/L BUN 11 (7-17) mg/dL Creatinine 0.63 L (0.7-1.0) mg/dL Estim Creat Clear Calc 106 ml/min Estimated GFR > 60 (59 - ) Glucose 99 (65-110) mg/dL Lactic Acid 1.0 (0.7-2.0) mmol/L Calcium 8.9 (8.4-10.2) mg/dL Total Bilirubin 0.8 (0.2-1.3) mg/dL AST 28 (14-36) U/L ALT 19 (6-35) U/L Alkaline Phosphatase 77 (38-126) U/L Total Protein 8.9 H (6.3-8.2) g/dL Albumin 3.9 (3.5-5.1) g/dL <Pablo Aldridge MD - Last Filed: 02/07/25 17:12> Imaging Data Radiologist's impression: Impressions Upper Extremity CT 02/07/25 10:33 IMPRESSION: 1. 11.2 x 5.6 x 2.9 cm abscess within the extensor compartment of the proximal to mid left forearm. Forearm X-Ray 02/07/25 10:50 Impression: 1: Moderate dorsal soft tissue swelling. Consider correlation with MRI of the forearm with contrast to assess for abscess. 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 <Pablo Aldridge MD - Last Filed: 02/07/25 17:12> Discharge Plan Discharge Clinical Impression: Abscess of skin or subcutaneous tissue <Edson Lee MD - Last Filed: 02/07/25 05:52> Patient Disposition: Acute Care Hospital <Edson Lee MD - Last Filed: 02/07/25 05:52> Condition: Serious <Edson Lee MD - Last Filed: 02/07/25 05:52> Patient Language: French <Edson Lee MD - Last Filed: 02/07/25 05:52> Prescriptions: No Action levofloxacin 500 mg tablet 500 mg PO DAILY Qty: 7 0RF naproxen 500 mg tablet 500 mg PO BID Qty: 14 0RF alprazolam 1 mg tablet 1 mg PO TID amoxicillin-pot clavulanate 875-125 mg tablet 1 tablet PO Q12H Qty: 14 0RF prednisone 20 mg tablet 20 mg PO BID Qty: 14 0RF <Edson Lee MD - Last Filed: 02/07/25 05:52> Follow-up/Referrals: Nathalie,Sandy Stewart, CRITICAL CARE NURSE PRACTITIONER [Primary Care Provider, Unknown] <Edson Lee MD - Last Filed: 02/07/25 05:52>
--- OUTSIDE RECORDS SUMMARY | 2025-02-07 05:52 | XMS_ITS | Patient Health Record ---
Author Organization [facility] Address [address] [place] [address] Care Team Providers Care Nanosystems Engineer Name Role Phone Abrahan Anna Primary Care [...] Her fiance i s currently deployed to [facility] and she is having a hard time without her. Pt. has a 12 y/o daughter who lives with her dad. She is from her father's dad. She is not working because of her mental illness.. Pt. is engaged. Her fiance i s currently deployed to [facility] and she is having a hard time without her. Pt. has a 12 y/o daughter who lives with her dad. She is from her father's dad. She is not working because of her mental illness.. Pt. is engaged. Her fiance i s currently deployed to [facility] and she is having a hard time without her. Pt. has a 12 y/o daughter who lives with her dad. She is from her father's dad. She is not working because of her mental illness.. Pt. is engaged. Her fiance i s currently deployed to [facility] and she is having a hard time without her. Pt. has a 12 y/o daughter who lives with her dad. She is from her father's dad. She is not working because of her mental illness.. Pt. is engaged. Her fiance i s currently deployed to [facility] and she is having a hard time without her. Pt. has a 12 y/o daughter who lives with her dad. She is from her father's dad. She is not working because of her mental illness.. Pt. is engaged. Her fiance i s currently deployed to [facility] and she is having a hard time without her. Pt. has a 12 y/o daughter who lives with her dad. She is from her father's dad. She is not working because of her mental illness.. Pt. is engaged. Her fiance i s currently deployed to [facility] and she is having a hard time without her. Pt. has a 12 y/o daughter who lives with her dad. She is from her father's dad. She is not working because of her mental illness.. Pt. is engaged. Her fiance i s currently deployed to [facility] and she is having a hard time without her. Pt. has a 12 y/o daughter who lives with her dad. She is from her father's dad. She is not working because of her mental illness.. pt is living in [facility] with a friend, not boyfriend. Has no contact with her dauhter. pt is living in [facility] with a friend, not boyfriend. Has no contact with her dauhter. pt is living in [facility] with a friend, not boyfriend. Has no contact with her dauhter. pt is living in [facility] with a friend, not boyfriend. Has no contact with her dauhter. pt is living in [facility] with a friend, not boyfriend. Has no contact with her dauhter. 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) Active confirmed Problem Information temporarily unavailable Bipolar 1 disorder with moderate dominick (F31.12) 01/11/20 21 Active confirmed Problem Information temporarily unavailable Tobacco dependence (F17.200) 01/11/20 21 Active confirmed Problem Information temporarily unavailable Amenorrhea (N91.2) 01/11/20 21 Active confirmed Problem Information temporarily unavailable PTSD (post-traumatic stress disorder) (F43.10) 01/03/20 19 Active confirmed Problem Information temporarily unavailable WILLIS (generalized anxiety disorder) (F41.1) 01/03/20 19 Active confirmed Problem Information temporarily unavailable Panic disorder (F41.0) 01/03/20 19 Active confirmed Problem Information temporarily unavailable Mood disorder (F39) 01/10/20 19 Active confirmed Problem Information temporarily unavailable Methamphetamine abuse (F15.10) 02/10/20 21 Active confirmed Problem Information temporarily unavailable Anorexia mentalis (F50.00) 01/31/20 19 Active confirmed Problem Information temporarily unavailable Hep C w/o coma, chronic (B18.2) 01/11/20 21 Active confirmed Problem Information temporarily unavailable Opioid use disorder (F11.99) 01/10/20 19 Active confirmed Problem Information temporarily unavailable MDD (major depressive disorder), recurrent severe, 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) 01/03/20 19 Active confirmed Problem Information temporarily unavailable Moderate benzodiazepine use disorder (F13.20) 01/11/20 21 [...] End Date Medicaid [facility] Primary Only [address] [place], [place] [id number] Kay Sanders Self - patient is the insured [address] [id number] Kay Sanders Self - patient is the insured Medical (General) History Medical History History ICD Code ptsd SEVERE PANIC ATTACK/ANXIETY DISORDER SUBSTANCE ABUSE Severe opioid dependence on maintenance therapy F11.20 Heroin abuse F11.10 hep c Surgical History Surgery Date(Month/Year) Hospitalization History Reason Date(Month/Year) [place] voluntary detox to get off meth adone
[2025-02-07 06:15] LABS: Hematocrit 38.6 % (37.0-47.0); Hemoglobin 11.9 g/dL (12.0-15.0); Immature Granulocyte Percent A 0.6 % (0-0.5); Lymphocytes Absolute Auto 2.08 K/mm3 (0.9-3.2); Mean Corpuscular HGB Conc 30.8 g/dl (32-36); Mean Corpuscular Hemoglobin 27.7 pg (26-34); Mean Corpuscular Volume 89.8 fl (80-100); Nucleated Red Blood Cells Absolute Auto 0.000 K/mm3 (0.0-0.012); Nucleated Red Blood Cells Perc 0.0 % (0.0-0.2); Platelet Count Result 433 k/mm3 (150-375); Red Blood Count 4.30 M/mm3 (4.2-5.4); White Blood Count 12.7 K/mm3 (4.5-10.0)
--- NOTE | 2025-02-07 06:40 | PC.NURSE ---
Patient is tough stick, this RN and ED dry pan charger attempted, unsuccessful. Attempting to contact vasuclar access.
[2025-02-07 06:44] LABS: Alanine Aminotransferase 19 U/L (6-35); Albumin Level 3.9 g/dL (3.5-5.1); Alkaline Phosphatase 77 U/L (38-126); Anion Gap 9 mmol/L (4-12); Aspartate Amino Transferase 28 U/L (14-36); Bilirubin,Total 0.8 mg/dL (0.2-1.3); Blood Urea Nitrogen 11 mg/dL (7-17); Calcium 8.9 mg/dL (8.4-10.2); Carbon Dioxide 24 mmol/L (22-30); Chloride 102 mmol/L (98-107); Estimated CRCL calculation 106 ml/min; Estimated Glomerular Filt Rate > 60; Glucose 99 mg/dL (65-110); Potassium 4.2 mmol/L (3.4-5.0); Sodium 135 mmol/L (137-145); Total Protein 8.9 g/dL (6.3-8.2)
--- NOTE | 2025-02-07 07:15 | PC.NURSE ---
Pt has ring on her L ring finger and is presently unable to remove ring. RN attempted to help pt remove ring by applying lubricant to finger, pt still unable to get ring off. RN attempted to educate pt on need for ring removal as pt has swelling to her L arm, L hand, and L fingers. PT states Nobody is cutting this ring off, it's gonna stay on until it goes back down referring to the swelling to her fingers.
--- NOTE | 2025-02-07 07:25 | PC.NURSE ---
Pt refusing to change from street clothes to hospital gown
[2025-02-07] MEDS: SODIUM CHLORIDE 0.9% IV 1,000 ML 999 ML IV CONT (08:16)
[2025-02-07] MEDS: CEFEPIME 2 GM in SODIUM CHLORIDE 0.9% IV 50 ML 100 ML IVPB (08:17)
[2025-02-07] MEDS: VANCOMYCIN 1,750 MG/NS 500 ML 1,750 MG/500 ML BAG 250 MG IVPB (09:11)
== END 2025-02-07 16:14 | disposition short-term general hospital (02) ==
LOC: ANHED 05:51
PROVIDERS: Emergency Provider Emergency Medicine; PCP Nurse Practitioner Family
DX: L02.414 Cutaneous abscess of left upper limb (principal)
CPT/HCPCS: 36415; 73090; 73201; 80053; 83605; 85025; 96365; 96366; 96367; 99285; J0692; J3373; J7030; Q9967